=== PATIENT | female | born 1950 | race Asian ===

== ENCOUNTER 2018-02-10 13:01 | Emergency (ER) | payer MEDICARE, MEDICAID ==
--- OUTSIDE RECORDS SUMMARY | 2018-02-10 13:08 | XMS REPORT ---
:1950 External Reference #:[id number] Author Organization [employer] Address [address] [place] [address] [place] [address] Phone [phone] Care Team Providers Name Role Phone Kosta Massey MD Primary Care Physician Unavailable Payers Type Date Identification Numbers Payment Provider Subscriber Medicaid Policy Number: [id number] Medicaid Jaycob Lovell Group Name: 1 1 [address] PayID: [id number] [place] [address] Medigap Part B Policy Number: [id number] Medicare Jaycob Lovell PayID: [id number] [address] [place] [address] Problems Date Description Provider Status Onset: 01/04/2018 Anxiety disorder Kosta Massey M.D.,FACP Active Onset: 01/04/2018 Chronic gastritis Kosta Massey M.D.,FACP Active Onset: 01/04/2018 Solitary nodule of lung Kosta Massey M.D.,FACP Active Note: RT Onset: 01/04/2018 Bloody nipple discharge Kosta Massey M.D.,FACP Active Note: RT Onset: 01/11/2018 Type 2 diabetes mellitus Kosta Massey M.D.,FACP Active Note: diet controlled Onset: 02/17/2013 Impaired fasting glycaemia Maria Esther White M.D. Inactive Inactive: 01/11/2018 Family History Date Family Member(s) Problem(s) Comments Father due to Lung Cancer () Mother due to Unknown Causes () Children 1 Siblings 2 First Sister Lung Cancer Social History Type Date Description Comments Marital Status Lives With Family Occupation Retired ETOH Use 01/04/2018 Denies alcohol use Smoking Patient has never smoked Recreational Drug Use Denies Drug Use Daily Caffeine Does Not Consume Caffeine General Hx Text 1 daughter Allergies, Adverse Reactions, Alerts Date Description Reaction Status Severity Comments 11/15/2012 NKDA active Medications Medication Date Status Form Strength Qnty SIG Indications Ordering Provider Co Q-10 02/17/ Active Capsules 1 tab Maria Esther 2013 daily Keyana White Multi Complete / Active Capsules daily Unknown 0000 Folic Acid / Active Tablets 1 by Unknown 0000 mouth every day Lecithin / Active Capsules 1 tab Unknown 0000 daily Vitamin B / Active Tablets 1 by Unknown Complex 0000 mouth every day Melatonin / Active Tablets 5mg 2 tabs by Unknown Maximum 0000 mouth Strength daily at bedtime Preservision / Active Capsules 1 by Unknown Areds 0000 mouth once a day Vitamin D / Active Capsules 1 by Unknown (Cholecalcifero 0000 mouth l) every day Metformin HCL 01/28/ Hx Tablets ER 500mg 30tabs ( Never R73.01 Marija ER 2015 - 24HR Took ) 1 Tien 01/04/ by mouth M.D. 2017 every day Triamcinolone 01/07/ Hx Cream 0.1% 45unit apply 691.8 Marija Acetonide 2015 s thin film Tien, twice M.D. daily [place] 3 / Hx Capsules 100cap 1 po qd. Unknown 0000 s Calcium 500+D / Hx Tablets 500-400mg- 60tabs 1 po qd Unknown 0000 Unit Malawian Hx to help Unknown Supplement 0000 sleep Buspirone HCL / Hx Tablets 5mg 1 by Unknown 0000 mouth once a day weaning off this Immunizations CPT Code Status Date Vaccine Lot # [id number] Given 01/28/2015 Influenza Virus Vaccine, Quadrivalent, Split, [id number] Preservative Free [id number] Given 01/28/2015 Pneumococcal Conjugate Vaccine 13 Valent For [id number] Intramuscular Use 03754 Given 02/17/2013 Zoster (Zostavax) [id number] Given 02/17/2013 Flu Vaccine Split Virus Preservative Free For [id number] Indiv 3Yr Older Vital Signs Date Vital Result Comment 01/23/2018 Height 61.5 inches 5'1.50" Weight 109.00 lb Heart Rate 66 /min BP Systolic Sitting 102 mmHg BP Diastolic Sitting 64 mmHg Respiratory Rate 16 /min Body Temperature 98.3 F BMI (Body Mass Index) 20.3 kg/m2 01/04/2018 Height 61.5 inches 5'1.50" Heart Rate 68 /min BP Systolic 100 mmHg BP Diastolic 60 mmHg Body Temperature 98.0 F O2 % BldC Oximetry 98 % 01/28/2015 Height 61.5 inches 5'1.50" Weight 110.50 lb Heart Rate 78 /min BP Systolic Sitting 102 mmHg BP Diastolic Sitting 64 mmHg Respiratory Rate 14 /min Body Temperature 96.5 F O2 % BldC Oximetry 99 % BMI (Body Mass Index) 20.5 kg/m2 01/07/2015 Height 62 inches 5'2" Weight 109.00 lb Heart Rate 68 /min BP Systolic Sitting 110 mmHg BP Diastolic Sitting 64 mmHg Body Temperature 98.0 F O2 % BldC Oximetry 98 % BMI (Body Mass Index) 19.9 kg/m2 02/17/2013 Weight 110.25 lb Heart Rate 64 /min BP Systolic Sitting 90 mmHg BP Diastolic Sitting 60 mmHg 11/15/2012 Height 62.5 inches 5'2.50" Weight 109.00 lb Heart Rate 64 /min BP Systolic Sitting 112 mmHg BP Diastolic Sitting 62 mmHg BMI (Body Mass Index) 19.6 kg/m2 Results Test Date Test Result H/L Range Note Laboratory test finding 01/08/2018 TSH (Thyroid Stim 0.90 mcIU/mL 0.34- 5.60 1 Horm) Vitamin B12 927 pg/mL High 180-914 2 Comp Metabolic Panel 01/08/2018 Sodium 141 mmol/L 135-145 Potassium 4.1 mmol/L 3.5-5.0 Chloride 107 mmol/L 101-111 Co2 Carbon Dioxide 29 mmol/L 22-32 Anion Gap 5 mmol/L 2-11 Glucose 107 mg/dL High 70-100 Blood Urea Nitrogen 20 mg/dL 6-24 Creatinine 0.62 mg/dL 0.51-0.95 BUN/Creatinine Ratio 32.3 High 8-20 Calcium 9.2 mg/dL 8.6-10.3 Total Protein 6.7 g/dL 6.4-8.9 Albumin 4.2 g/dL 3.2-5.2 Globulin 2.5 g/dL 2-4 Albumin/Globulin Ratio 1.7 1-3 Total Bilirubin 0.50 mg/dL 0.2-1.0 Alkaline Phosphatase 78 U/L 34-104 Alt 19 U/L 7-52 Ast 21 U/L 13-39 Egfr Non- 95.4 >60 Egfr 115.5 >60 3 Laboratory test finding 01/08/2018 Hemoglobin A1c (Glyco HGB) 6.8 % High 4.0-5.6 4 Hepatitis C Antibody Nonreactive Nonreactive 5 Hepatitis B Alonso AB Titer 01/08/2018 Hepatitis B Surface AB Not Immune Immune Hep B Surf AB Level < 3.10 mIU/mL >12 Laboratory test finding 01/08/2018 Hepatitis B Surface Ag Nonreactive Nonreactive 6 CBC Auto Diff 01/08/2018 White Blood Count 3.6 10^3/uL 3.5-10.8 Red Blood Count 5.13 10^6/uL 4.00-5.40 Hemoglobin 15.3 g/dL 12.0-16.0 Hematocrit 46 % 35-47 Mean Corpuscular Volume 89 fL 80-97 Mean Corpuscular Hemoglobin 30 pg 27-31 Mean Corpuscular HGB Conc 33 g/dL 31-36 Red Cell Distribution Width 14 % 10.5-15 Platelet Count 181 10^3/uL 150-450 Mean Platelet Volume 8.5 um3 7.4-10.4 Abs Neutrophils 2.0 10^3/uL 1.5-7.7 Abs Lymphocytes 1.2 10^3/uL 1.0-4.8 Abs Monocytes 0.4 10^3/uL 0-0.8 Abs Eosinophils 0 10^3/uL 0-0.6 Abs Basophils 0 10^3/uL 0-0.2 Abs Nucleated RBC 0 10^3/uL Granulocyte % 54.3 % 38-83 Lymphocyte % 33.5 % 25-47 Monocyte % 10.8 % High 0-7 Eosinophil % 0.1 % 0-6 Basophil % 1.3 % 0-2 Nucleated Red Blood Cells % 0.1 Laboratory test 01/08/2018 Erythropoietin 7.7 mIU/mL 2.6 - 18.5 7 finding Order 01/04/2018 EKG Results given to CBC Auto Diff 01/15/2015 White Blood Count 4.2 10^3/uL Low 4.8-10.8 Red Blood Count 5.40 10^6/uL 4.0-5.4 Hemoglobin 15.5 g/dL 12.0-16.0 Hematocrit 49 % High 35-47 Mean Corpuscular Volume 90 fL 80-97 Mean Corpuscular Hemoglobin 29 pg 27-31 Mean Corpuscular HGB Conc 32 g/dL 31-36 Red Cell Distribution Width 14 % 10.5-15 Platelet Count 173 10^3/uL 150-450 Mean Platelet Volume 9 um3 7.4-10.4 Abs Neutrophils 2.2 10^3/uL 1.5-7.7 Abs Lymphocytes 1.6 10^3/uL 1.0-4.8 Abs Monocytes 0.4 10^3/uL 0-0.8 Abs Eosinophils 0 10^3/uL 0-0.6 Abs Basophils 0 10^3/uL 0-0.2 Abs Nucleated RBC 0 10^3/uL Granulocyte % 51.9 % 38-83 Lymphocyte % 37.7 % 25-47 Monocyte % 9.1 % High 1-9 Eosinophil % 0.7 % 0-6 Basophil % 0.6 % 0-2 Nucleated Red Blood Cells % 0 Comp Metabolic Panel 01/15/2015 Sodium 140 mmol/L 133-145 Potassium 3.9 mmol/L 3.5-5.0 Chloride 106 mmol/L 101-111 Co2 Carbon Dioxide 30 mmol/L 22-32 Anion Gap 4 mmol/L 2-11 Glucose 95 mg/dL 70-100 Blood Urea Nitrogen 19 mg/dL 6-24 Creatinine 0.62 mg/dL 0.51-0.95 BUN/Creatinine Ratio 30.6 High 8-20 Calcium 9.1 mg/dL 8.6-10.3 Total Protein 6.5 g/dL 6.4-8.9 Albumin 4.2 g/dL 3.2-5.2 Globulin 2.3 g/dL 2-4 Albumin/Globulin Ratio 1.8 1-3 Total Bilirubin 0.50 mg/dL 0.2-1.0 Alkaline Phosphatase 77 U/L 34-104 Alt 16 U/L 7-52 Ast 20 U/L 13-39 Egfr Non- 96.3 >60 Egfr 123.9 >60 8 Laboratory test 01/07/2015 Gardnerella/Yeast: Vaginal SEE RESULT BELOW 9 finding Dna Laboratory test 01/07/2015 Cytology SEE RESULT BELOW 10 finding HPV Rna Ww/Reflex Genotype Negative Negative 11 Laboratory test finding 01/07/2015 Hemoglobin A1c 6.1 5-7 Surgical Pathology 02/27/2013 S RUN DATE: 03/03/ <SEE 12 NOTE> Laboratory test finding 02/17/2013 Hemoglobin A1c 6.4 5-7 Laboratory test finding 11/15/2012 Hemoglobin A1c 6.3 5-7 1 FASTING 10 HOUR 2 Normal Range 180 to 914 Indeterminate Range 145 to 180 Deficient Range <145 3 Because ethnic data is not always readily available, this report includes an eGFR for both -Americans and non- Americans. The National Kidney Disease Education Program (NKDEP) does not endorse the use of the MDRD equation for patients that are not between the ages of 18 and 70, are , have extremes of body size, muscle mass, or nutritional status, or are non- or non-. According to the National Kidney Foundation, irrespective of diagnosis, the stage of the disease is based on the level of kidney function: Stage Description GFR(mL/min/1.73 m(2)) 1 Kidney damage with normal or decreased GFR 90 2 Kidney damage with mild decrease in GFR 60-89 3 Moderate decrease in GFR 30-59 4 Severe decrease in GFR 15-29 5 Kidney failure <15 (or dialysis) 4 Therapeutic target for the treatment of diabetes mellitus patients is <7% HBA1C, and in selective patients <6.0%. Please refer to [place] Diabetes Association diabetic care guidelines for further information. 5 FASTING 10 HOUR 6 FASTING 10 HOUR 7 Test Performed by: [facility] [address] [place] [address] 8 Because ethnic data is not always readily available, this report includes an eGFR for both -Americans and non- Americans. The National Kidney Disease Education Program (NKDEP) does not endorse the use of the MDRD equation for patients that are not between the ages of 18 and 70, are , have extremes of body size, muscle mass, or nutritional status, or are non- or non-. According to the National Kidney Foundation, irrespective of diagnosis, the stage of the disease is based on the level of kidney function: Stage Description GFR(mL/min/1.73 m(2)) 1 Kidney damage with normal or decreased GFR 90 2 Kidney damage with mild decrease in GFR 60-89 3 Moderate decrease in GFR 30-59 4 Severe decrease in GFR 15-29 5 Kidney failure <15 (or dialysis) 9 SEE RESULT BELOW Name: JAYCOB LOVELL : [address]: Marija Chauhan MD Acct: [id number] Unit: [id number] AGE: 64 Location: [facility] Re01/07/15 SEX: F Status: REG REF SPEC: [id number] CHANELLE: 01/07/15-[address] [facility] [address]: Marija Chauhan MD REQ: [id number] RECD: 01/07/15 STATUS: COMP _ SOURCE: SAÚL MURCIAC: ORDERED: Carroll Dominguez DNA Procedure Result Verified Site Gardnerella/Yeast: Vaginal DNA Final 01/08/15- 1104 ML Organism 1 Negative Gardnerella Organism 2 Negative Jessica The presence of G. vaginalis, although suggestive, is not diagnostic for bacterial vaginosis. Results should be interpreted in conjuction with other clinical and laboratory data available. Women with vaginal discharge should be evaluated for risk factors of cervicitis and pelvic inflammatory disease, toxic shock syndrome (S.aureus), and if present, evaluated for organisms not included in this assay such as N. gonorrhoeae, C. trachomatis, Mobiluncus, Mycoplasma and/or Prevotella. Mixed infections may occur. The performance of this test on patient specimens collected during or immediately after antimicrobial therapy is unknown. The presence or absence of Jessica species, or G. vaginalis cannot be used as a test for therapeutic success or failure. * ML - MAIN LAB ([facility]) . END OF REPORT * ML=Testing performed at Main Lab DEPARTMENT OF PATHOLOGY, [address] [place] [address] Josesito Millard M.D. Director [facility] # [id number] 10 SEE RESULT BELOW Name: JAYCOB LOVELL : [address]: Marija Chauhan MD Acct: [id number] Unit: [id number] AGE: 64 Location: [facility] Re01/07/15 SEX: F Status: REG REF SPEC: [id number] CHANELLE: 01/07/15-[address]: Marija Chauhan MD REQ: [id number] RECD: 01/07/15 STATUS: SOUT _ ORDERED: IMAGE ANALYSIS, HPV/Thin Prep, HPV 16/18 GENE FINAL DIAGNOSIS Negative for Intraepithelial lesion or Malignancy A. Ectocervical/Endocervical Specimen Adequacy: Satisfactory of evaluation Transformation zone component cannot be definitely identified due to presence of atrophy or other hormonal changes Patient Information: HPV: High risk HPV RNA testing regardless of pap results. HPV 16/18 Genotype for HPV pos Actual Specimen Date: 01/07/15 Post Menopausal?: Y Other Pertinent History: never had a pap Date Time Test Result Flag (u) Normal Range 01/07/15 1029 HPV RNA RFLX GE Negative Negative The high-risk HPV types detected by the assay include: 16, 18, 31, 33, 35, 39, 45, 51, 52, 56, 58, 59, 66, and 68. Signed (signature on file) Ermelinda EdwardsVIJI (ASCP) 01/08/15 1544 This Pap test was evaluated with the assistance of the [employer] Test Imaging System. Due to cytologic findings at the information specialist microscope, comprehensive manual rescreening by a Combatant Swimmer may be required. The Pap Smear is a screening test designed to aid in the detection of premalignant and malignant conditions of the uterine cervix. It is not a diagnostic procedure and should not be used as the sole means of detecting cervical cancer. Both false- positive and false- negative reports do occur. Depending on your risk status, a Pap smear should be obtained and evaluated every 1-3 years. END OF REPORT * ML=Testing performed at Main Lab DEPARTMENT OF PATHOLOGY, [facility] [address] [place], [place] [address] Josesito Millard M.D. Director [facility] # [id number] 11 The high-risk HPV types detected by the assay include: 16, 18, 31, 33, 35, 39, 45, 51, 52, 56, 58, 59, 66, and 68. 12 RUN DATE: 03/03/13 [facility] LAB LIVE PAGE 1 RUN TIME: [address] [facility] [employer] [place], [place] [address] Specimen Inquiry Name: JAYCOB LOVELL : [address]: Maria Esther White MD Acct: [id number] Unit: [id number] AGE: 62 Location: [facility] Re02/27/13 SEX: F Status: REG REF SPEC: [id number] CHANELLE: 02/27/13- SUBM DR: Pio Grier MD REQ: [id number] RECD: 02/27/135807 STATUS: SUHA NELSON DR: Maria Esther White MD _ ORDERED: KERATIN STAIN, IRON STAIN, MELAN-A STAIN, LEVEL IV Immunohistochemical stains for Pankeratin and Melan-A were performed with appropriate controls. The keratin stain highlights benign apocrine ductal elements. The Melan-A stain is entirely negative. These findings support the previously rendered diagnosis. Addendum Signed (signature on file) Josesito Millard MD 1424 FINAL DIAGNOSIS Breast, right, 6-7 o'clock, biopsy: A. Benign breast tissue with fibrocystic changes and changes compatible with previously ruptured cyst; see comment. B. No evidence of invasive or in situ carcinoma. Pending stains. COMMENT: Histologic sections show breast parenchyma with an area of adenosis and apocrine metaplasia. Adjacent to this area a nodule is present composed of histiocytes, hemosiderin lesion macrophages, and multinucleate giant cells containing cholesterol clefts in their cytoplasm. No epithelial elements are present in this nodule. Deeper levels of sectioning show numerous extravasated erythrocytes and fibrin deposition in the nodule. An iron stain, with appropriately reacting controls, is positive for copious amounts of hemosiderin. No cyst lining is present. Morphologically, this area of organizing inflammation with hemorrhage and cholesterol granulomata is most compatible with a reactive process to a previously ruptured cyst. There is no evidence of invasive or in situ carcinoma in the sampled tissue. Clinical, pathologic, and radiographic correlation is recommended. Additional immunostains to CONTINUED ON NEXT PAGE * ML=Testing performed at Main Lab DEPARTMENT OF PATHOLOGY, [facility] [address] [place], [place] [address] Josesito Millard M.D. Director [facility] Permit #[id number] RUN DATE: 03/03/13 [facility] LAB LIVE PAGE 2 RUN TIME: [address] [facility] [employer] [place], [place] [address] Specimen Inquiry Patient: JAYCOB LOVELL [id number] (Continued) SPECIMEN COMMENTS (Continued) definitively exclude malignancy are pending and the results will be reported in an addendum. Dr. Millard reviewed this case in intradepartmental consultation and agrees with the diagnosis. CLINICAL HISTORY Right breast solid nodule at the 6-7 o'clock position measuring 0.6 x 0.4 x 0.5 cm. GROSS DESCRIPTION The specimen is received in formalin labeled Jaycob Lovell, Ultrasound Guided Right Breast Biopsy, and consists of multiple cores of fibrofatty tissue that in aggregate measure 1.2 x 0.5 x 0.2 cm. Submitted entirely, one cassette. Signed (signature on file) Stephanie Alcala MD 05/12 1635 END OF REPORT * ML=Testing performed at Main Lab DEPARTMENT OF PATHOLOGY, [address] [place] [address] Josesito Millard M.D. Director [facility] Permit #[id number] Procedures Date CPT Code Description Status 01/04/2018 63409 EKG Tracing & Interpretation Completed 01/15/2015 Mammogram Completed 02/21/2013 Mammogram Completed Encounters Type Date Location Provider CPT E/M Dx Office Visit 01/04/2018 3:20p [facility] Kosta Massey, [address] F41.9 - Kevin Cazares M.D.,FACP R53.1 R73.01 K29.70 R91.1 N64.52 R00.2 Office Visit 01/28/2015 9:00a [facility] Marija Chauhan M.D. 14052 Z00.00 - Ben R73.01 Z12.11 D25.2 Z12.31 Z23 Office Visit 01/07/2015 9:40a [facility] Marija Chauhan M.D. 48252 790.21 - Ben V76.10 369.20 616.10 780.79 V76.2 691.8 Office Visit 02/17/2013 9:00a [facility] - Maria Esther White M.D. 11131 790.21 Ben V76.10 V04.81 V04.89 Office Visit 11/15/2012 1:40p [facility] - Maria Esther White M.D. 31589 790.21 Ben 369.20 Plan of Care Future Appointment(s):02/01/2018 9:00 am - Robert Castillo MD at [facility] Ujirkahcvifoxoex60/11/2018 9:40 am - Kosta Massey M.D.,FACP at [facility] - [address]/23/2018 - Christine Cullen MDN64.52 Nipple dischargeFollow up:TBA after mammo
--- OUTSIDE RECORDS SUMMARY | 2018-02-10 13:08 | XMS REPORT ---
:1950 External Reference #:[id number] Author Organization [facility] Address [address] [place] [address] [address] [place] [address] Phone [phone] Care Team Providers Name Role Phone Kosta Massey MD Primary Care Physician Unavailable Payers Type Date Identification Numbers Payment Provider Subscriber Medicare Primary Policy Number: [id number] Medicare Jaycob Lovell PayID: [id number] [address] [place] [address] Medigap Part B Policy Number: [id number] Medicaid Jaycob Lovell Group Name: 1 [address] PayID: [id number] [place] [address] Problems Date Description Provider Status Onset: 01/04/2018 [...] Family History Date Family Member(s) Problem(s) Comments General stomach ulcer Other family history of emphysema Father due to Lung Cancer () Mother due to Unknown Causes () Children 1 Siblings 2 First Sister Lung Cancer Social History Type Date Description Comments Marital Status Lives With Family Occupation Retired ETOH Use 01/04/2018 Denies alcohol use Smoking Patient has never smoked Recreational Drug Use Denies Drug Use Daily Caffeine Does Not Consume Caffeine General Hx Text 1 daughter - (Chelsie [phone]) Allergies, Adverse Reactions, Alerts Date Description Reaction Status Severity Comments 11/15/2012 NKDA active Medications Medication Date Status Form Strength Qnty SIG Indications Ordering Provider Prevacid 02/01/ Active Capsules 15mg 30caps one each Robert Nair 2018 DR dorota Castillo, on empty MD Co Q-10 02/17/ Active Capsules 1 tab [...] s thin film Tien, twice M.D. daily Selah 3 / Hx Capsules 100cap 1 po qd. Unknown 0000 s Calcium 500+D / Hx Tablets 500-400mg- 60tabs 1 po qd Unknown 0000 Unit Greenlandic / Hx to help Unknown Supplement 0000 sleep Buspirone HCL / Hx Tablets 5mg 1 by Unknown 0000 mouth once a day weaning off this Immunizations CPT Code Status Date Vaccine Lot # [id number] Given 01/28/2015 Influenza Virus Vaccine, Quadrivalent, Split, [id number] Preservative Free 04004 Given 01/28/2015 Pneumococcal Conjugate Vaccine 13 Valent For [id number] Intramuscular Use 15275 Given 02/17/2013 Zoster (Zostavax) [id number] Given 02/17/2013 Flu Vaccine Split Virus Preservative Free For [id number] Indiv 3Yr Older Vital Signs Date Vital Result Comment 02/01/2018 Height 61.5 inches 5'1.50" Weight 110.38 lb Heart Rate 67 /min BP Systolic 89 mmHg BP Diastolic 56 mmHg Respiratory Rate 16 /min Body Temperature 97.0 F Pain Level 0 O2 % BldC Oximetry 96 % BMI (Body Mass Index) 20.5 kg/m2 01/23/2018 Height 61.5 inches 5'1.50" Weight 109.00 [...] in selective patients <6.0%. Please refer to [place] [employer] diabetic care guidelines for further information. 5 FASTING 10 HOUR 6 FASTING 10 HOUR 7 Test Performed by: [facility] [address] [place] [address] 8 Because ethnic data is not always [...] [address]: Marija Chauhan MD Acct: [id number] Unit: [id number] AGE: 64 Location: [facility] Re01/07/15 SEX: F Status: REG REF SPEC: [id number] CHANELLE: 01/07/15-[address]: Marija Chauhan MD REQ: [id number] RECD: 01/07/15 STATUS: COMP _ SOURCE: SAÚL SPDESC: ORDERED: Angelica,Yeast DNA Procedure Result Verified Site Gardnerella/Yeast: Vaginal [...] or failure. * ML - MAIN LAB ([facility]) . END OF REPORT * ML=Testing performed at Main Lab DEPARTMENT OF PATHOLOGY, [address] [place] [address] Josesiot Millard M.D. Director [facility] # [id number] 10 SEE RESULT BELOW Name: JAYCOB LOVELL : [address]: Marija Chauhan MD Acct: [id number] Unit: [id number] AGE: 64 Location: [facility] Re01/07/15 SEX: F Status: REG REF SPEC: [id number] CHANELLE: 01/07/15-1029 [facility] DR: Marija Chauhan MD REQ: [id number] RECD: 01/07/15 STATUS: SOUT _ ORDERED: IMAGE [...] 64, and 68. Signed (signature on file) VIJI Garcia (ASCP) 01/08/15 1544 This Pap test was evaluated with the assistance of the [employer] Test Imaging System. Due to cytologic findings at the marine animal trainer microscope, comprehensive manual rescreening by a Ditching Machine Operator may be required. The Pap Smear is [...] performed at Main Lab DEPARTMENT OF PATHOLOGY, [address] [place] [address] Josesito Millard M.D. Director [facility] # [id number] 11 The high-risk HPV types detected by the assay include: 16, 18, 31, 33, 35, 39, 45, 51, 52, 56, 58, 59, 66, and 68. 12 RUN DATE: 03/03/13 [facility] LIVE PAGE 1 RUN TIME: [address] [place] [address] Specimen Inquiry Name: JAYCOB LOVELL : [address]: Maria Esther White MD Acct: [id number] Unit: [id number] AGE: 62 Location: [facility] Re02/27/13 SEX: F Status: REG REF SPEC: [id number] CHANELLE: 02/27/13- SUBM DR: Pio Grier MD REQ: [id number] RECD: 02/27/13-4447 STATUS: SUHA NELSON DR: Maria Esther White [...] performed at Main Lab DEPARTMENT OF PATHOLOGY, [address] [place] [address] Josesito Millard M.D. Director [facility] Permit #[id number] RUN DATE: 03/03/13 [facility] LIVE PAGE 2 RUN TIME: [address] [place] [address] Specimen Inquiry Patient: LOVELLEVELIOCHRISTIANO [id number] (Continued) SPECIMEN COMMENTS (Continued) definitively exclude malignancy [...] performed at Main Lab DEPARTMENT OF PATHOLOGY, [address] [place] [address] Josesito Millard M.D. Director [facility] Permit #[id number] Procedures Date CPT Code Description Status 01/24/2018 Mammogram Completed 01/04/2018 40717 EKG Tracing & Interpretation Completed 01/15/2015 Mammogram Completed 02/21/2013 Mammogram Completed Encounters Type Date Location Provider CPT E/M Dx Office Visit 01/04/2018 3:20p [facility] Internal Medicine Kosta Massey, [address] F41.9 - [place] Sage Ridley,FACP R53.1 R73.01 K29.70 R91.1 N64.52 R00.2 Office Visit 01/28/2015 9:00a [facility] Internal Medicine Marija Chauhan M.D. 484[address] Z00.00 - [place] R73.01 Z12.11 D25.2 Z12.31 Z23 Office Visit 01/07/2015 9:40a [facility] Internal Medicine Marija Chauhan M.D. 60516 790.21 - [place] V76.10 369.20 616.10 780.79 V76.2 691.8 Office Visit 02/17/2013 9:00a [facility] Internal Medicine - Maria Esther White M.D. 98221 790.21 [place] V76.10 V04.81 V04.89 Office Visit 11/15/2012 1:40p [facility] Internal Medicine - Maria Esther White M.D. 17629 790.21 [place] 369.20 Plan of Care Future Appointment(s):04/04/2018 9:15 am - Robert Castillo MD at [facility] Apalracwybjbpatt82/22/2018 9:30 am - MARISOL Corado at [facility]02/08/2018 8:00 am - Christine Cullen MD at [facility]02/07/2018 9:40 am - Kosta Massey M.D.,FACP at [facility] Internal Medicine - [address]
[2018-02-10 13:17] VITALS: BP 108/59
--- NOTE | 2018-02-10 13:51 | UC ---
Skin Complaint HPI - HPI Summary HPI Summary: Conducted in Mandarin Telugu. Accompanied by daughter. 67yo c/o rash and pain on right flank for one week. On 02/08/18 went [place] [facility] [place] but it was cancelled due to possible Shingles. Here with daughter who interprets and states she started Valacyclovir on 02/08/18 and is concerned that symptoms are worse. Experiencing very severe shooting pain on site of eruption that is radiating to limbs, abdomen and even right scalp. Has not been able to sleep. - History of Current Complaint Chief Complaint: UCSkin Time Seen by Provider: 02/10/18 13:13 Stated Complaint: SHINGLES FOLLOWUP Hx Obtained From: Patient, Family/Waste Water Operator ?: No Onset/Duration: Sudden Onset, Lasting Days Skin Exposure Onset/Duration: Days Ago Timing: Constant Onset Severity: Severe Current Severity: Severe Pain Intensity: 9 Location: Discrete Character: Pain, Redness Aggravating Factor(s): Nothing Alleviating Factor(s): Nothing Associated Signs & Symptoms: Positive: Rash, Tenderness - Allergy/Home Medications Allergies/Adverse Reactions: Allergies Allergy/AdvReac Type Severity Reaction Status Date / Time No Known Allergies Allergy Verified 02/10/18 13:17 Home Medications: Home Medications ValACYclovir (*) [Valtrex 1 GM(*)] 1 tab PO TID 02/10/18 [History Confirmed ] Review of Systems Constitutional: Fatigue Skin: Rash Musculoskeletal: Myalgia All Other Systems Reviewed And Are Negative: Yes PMH/Surg Hx/FS Hx/Imm Hx GI/ History: Gastroesophageal Reflux - Surgical History Surgical History: Yes Surgery Procedure, Year, and Place: benign breast biopsy right, bilat cataract - Family History Known Family History: Positive: Other - lung adenoCA in sister - Social History Alcohol Use: None Substance Use Type: None Smoking Status (MU): Never Smoked Tobacco Have You Smoked in the Last Year: No Physical Exam - Summary Physical Exam Summary: pkxclu-xdzvwuw-[id number] eruption following dermatomal distribution on right mid scapular and breast area. Triage Information Reviewed: Yes Appearance: Well-Nourished, Pain Distress Vital Signs: Initial Vital Signs Temp 99.0 F 02/10/18 13:11 Pulse 84 02/10/18 13:11 Resp 18 02/10/18 13:11 BP 108/59 02/10/18 13:11 Pulse Ox 98 02/10/18 13:11 Vital Signs Reviewed: Yes Eyes: Positive: Conjunctiva Clear ENT: Positive: Hearing grossly normal, Pharynx normal Neck: Positive: Supple, Nontender Respiratory: Positive: Chest non-tender, Lungs clear, Normal breath sounds, No respiratory distress Cardiovascular: Positive: RRR, No Murmur, Pulses Normal, Brisk Capillary Refill Abdomen Description: Positive: Nontender, No Organomegaly, Soft Bowel Sounds: Positive: Present Musculoskeletal: Positive: Strength Intact, ROM Intact, No Edema Skin: Positive: rashes Course/Dx - Course Course Of Treatment: patient with onset of herpes zoster a week ago, started treatment 2 days ago, experiencing neuralgic pain, to start treatment for it. Prescribed pamelor bedtime, norco prn and lidocaine patch as needed. Patient instructed to continue valtrex and follow up with PCP in 5-7 days. - Diagnoses Provider Diagnoses: postherpetic neuralgia Discharge - Sign-Out/Discharge Documenting (check all that apply): Patient Departure All imaging exams completed and their final reports reviewed: No Studies - Discharge Plan Condition: Stable Disposition: HOME Patient Education Materials: Shingles (ED) Referrals: Kosta Massey MD [Primary Care Provider] - - Billing Disposition and Condition Condition: STABLE Disposition: Home
== END 2018-02-10 14:00 | disposition home or self-care (01) ==
LOC: UCEAST 13:01
DX: B02.29 Other postherpetic nervous system involvement (principal)
CPT/HCPCS: 99212; G0463

== ENCOUNTER → 2018-03-29 10:19 | Day surgery (SDC) | payer MEDICARE, MEDICAID ==
--- NOTE | 2018-02-04 20:27 | HP ---
CC: Dr. Kosta Massey; Dr. Robert Castillo * ADMISSION HISTORY AND PHYSICAL: DATE OF ADMISSION: 02/08/18 ATTENDING SURGEON: Dr. Christine Cullen.* (DICTATED BY MARISOL MARS) CHIEF COMPLAINT: Bloody nipple discharge, right breast. HISTORY OF PRESENT ILLNESS: This is a generally healthy 67-year-old female who over the past 10 to 11 months has noticed spontaneous drainage from the right nipple. She states that it occurs every 1 to 2 days and is more pronounced when she is more active. She describes the drainage as sometimes reddish and more often dark brownish. Until yesterday, she had not been experiencing any pain in the breast; however, yesterday, she reports feeling occasional shooting pains in the right breast, generally emanating from the upper outer quadrant and into the breast. She notes no shortness of breath, though pain is somewhat exacerbated by deep inspiration. She did not have any trauma in recent days. She had a prior biopsy of the right breast in 2014 here at [facility] for benign disease. A mammogram was obtained on 01/24/18, which was essentially a normal study showing both the biopsy clip from prior biopsy of the right breast at the 6 o'clock position and stable asymmetry in the inferior portion of the right breast attributed to glandular tissue. The patient has had prior mammograms here for comparison in both 2012 and 2014 and the aforementioned changes are considered stable. The patient was seen in the office and examined by Dr. Cullen on 01/23/18 at which time breast exam was notable for some dense tissue in the upper outer quadrant of the right breast and some expressible drainage from the right nipple, which was heme positive. Dr. Cullen has discussed with the patient the indications for surgery, the risks , benefits, and alternatives. She would like to proceed as scheduled with terminal duct excision. PAST MEDICAL HISTORY: Occasional palpitations (PACs?), anxiety, gastritis. She also has a history of mildly elevated A1c, though per the patient and her daughter, she has never been treated for it nor has any dietary changes specifically for control. PAST SURGICAL HISTORY: Include excision of what appears to be likely a ganglion cyst from the dorsum of the right wrist and bilateral cataract extractions. CURRENT MEDICATIONS: Prevacid 15 mg once daily (just started today). She also takes the following supplements: 1. CoQ10. 2. Vitamin D. 3. PreserVision AREDS. 4. Melatonin (nightly). 5. Vitamin B complex. 6. Lecithin. 7. Folic acid. 8. Multivitamin. DRUG ALLERGIES: None known. FAMILY HISTORY: Negative for anesthesia problems, bleeding, or clotting disorders. 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 The patient does spend time back and forth living with her daughter and living in [place] with her . Her was a smoker until about a year ago and therefore the patient has some history of secondhand smoke, but herself has never used tobacco. She denies use of alcohol or other recreational drugs. REVIEW OF SYSTEMS: General: No recent constitutional symptoms or acute illnesses other than as noted in the HPI. HEENT: No problems reported. Cardiovascular: No chest pain per se. Occasional palpitations or rapid heart rate, though no change in recent years. No history of murmur or hypertension. Respiratory: No chronic cough or shortness of breath. No history of asthma. She apparently had a CT scan done in [place], which Dr. Massey has the report. She also underwent CT scan of the chest recently showing small subcentimeter bilateral pulmonary nodules without comparison with prior scan. The patient does have occasional cough, generally nonproductive. GI: She recently underwent evaluation with Dr. Castillo for some dyspepsia-type symptoms. She had had an otherwise normal-appearing EGD in [place] in April of this year. Dr. Castillo elected to place her on Prevacid, which she has just started. No significant lower GI symptoms. She has never had a colonoscopy. : No problems reported. 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 She has a history of uterine fibroids. Endocrine : Mild type 2 diabetes (versus impaired fasting glucose). No history of thyroid dysfunction. Neuro/Psych: She does have a history of some anxiety, which she feels is better controlled at the present time and occasional insomnia. PHYSICAL EXAMINATION GENERAL: Well-nourished, well-developed female, in no acute distress. VITAL SIGNS: Height 5 feet 2 inches, weight 109 pounds, temperature 98, blood pressure 104/62, pulse 84, respirations 18. HEENT: Pupils equal, round, and reactive. EOMs intact. No conjunctival pallor. Oropharynx: Teeth in good repair. No intraoral lesions. Mucous membranes moist. NECK: No lymphadenopathy, thyromegaly, or masses. LUNGS: Clear to auscultation. HEART: Regular rate and rhythm. No murmur noted. BREASTS: Per Dr. Cullen's exam, no discrete masses though some increased density in the upper outer quadrant in the right breast. I re-examined the right breast today. There is no active or expressible nipple discharge. There is no erythema or skin changes. I do not feel any discrete masses within the breast or any right axillary adenopathy nor was there any significant tenderness to palpation of the breast. The patient is reassured. ABDOMEN: Soft, nontender to palpation. No palpable masses or organomegaly. GENITALIA: Not done. RECTAL: Not done. BACK: No spinous process or CVA tenderness. EXTREMITIES: No edema. NEUROLOGICAL: Grossly intact. SKIN: Warm and dry. No suspicious rashes or lesions noted. IMPRESSION: Bloody nipple discharge, right breast. PLAN: Terminal duct excision, right breast. MARISOL MARS [id number]/CPS #: [id number] [facility]
--- NOTE | 2018-03-12 06:57 | HP ---
AMENDED REPORT NOW INCLUDES DESIGNATED COSIGNER CC: Dr. Kosta Massey; Dr. Robert Castillo * ADMISSION HISTORY AND PHYSICAL: DATE OF ADMISSION: 03/29/18 through same-day surgery. ATTENDING SURGEON: Dr. Christine Cullen.* (DICTATED BY MARISOL MARS) CHIEF COMPLAINT: Bloody nipple discharge, right breast. HISTORY OF PRESENT ILLNESS: This is a generally healthy 67-year-old female who over the past 10 to 11 months has noticed spontaneous drainage from the right nipple. She states that it occurs every 1 to 2 days and is more pronounced when she is active. She describes the drainage as sometimes reddish and more often dark brownish. She had had a prior biopsy of the right breast in [address] [facility] for benign disease. A mammogram was obtained on 01/24/18 , which was essentially normal study, both the biopsy clip from prior biopsy of the right breast at the 6 o'clock position and stable asymmetry in the inferior portion of the right breast attributed to glandular tissue. The patient had that prior mammograms here for comparison in both 2012 and 2014 and the aforementioned changes are considered stable. The patient was seen initially in the office and examined by Dr. Cullen on 01/23, at which time breast exam was notable for some dense breast tissue in the upper outer quadrant of the right breast and some expressible drainage from the right nipple, which was heme-positive. The patient was scheduled for terminal duct excision and at the time of her preoperative exam had related feelings of shooting pains into the right breast beginning the day prior. There was no specific finding on physical exam at that time and she presented on the day of surgery with rash along the dermatome consistent with shingles. Surgery was therefore cancelled. The patient did complete 7 days of Valtrex. She continued to have significant pain related to shingles and was prescribed nortriptyline and more recently Lyrica, both of which she continues at the present time. Overall, she has improved significantly and does have a followup later this week with Dr. Massey. Also of note, the patient does not speak Maltese. Her daughter was present today for translation. The patient understands the indications for surgery, the risks, benefits, and alternatives and would like to proceed as scheduled with right breast terminal duct excision. PAST MEDICAL HISTORY: Occasional palpitations (PACs ?), anxiety, gastritis, and recently shingles. She also has had history of mildly elevated A1c, though per the patient and her daughter she has never been treated for diabetes nor does she have any dietary restrictions. PAST SURGICAL HISTORY: Include excision of what appears to be a ganglion cyst from the dorsum of the right wrist, bilateral cataract extractions and prior right breast biopsy. CURRENT MEDICATIONS: 1. Prevacid 15 mg once daily. 2. CoQ10. 3. Vitamin D. 4. PreserVision AREDS. 5. Melatonin (nightly). 6. Vitamin B complex. 7. Lecithin. 8. Folic acid. 9. Multivitamin. 10. Nortriptyline 25 mg b.i.d. 11. Lyrica 75 mg b.i.d. 12. Hydrocodone/APAP 5/325 p.r.n. for pain (has not required much in the past few days). DRUG ALLERGIES: None known. FAMILY HISTORY: Negative for anesthesia problems, bleeding, or clotting disorder. SOCIAL HISTORY: The patient lives with her daughter. The patient does spend time back and forth living with her daughter and living in [place] with her . Her was a smoker until about a year ago and therefore, the patient does have some history of secondhand smoke, but she herself has never used tobacco. She denies use of alcohol or other recreational drugs. REVIEW OF SYSTEMS: General: Recent episode of shingles prompting rescheduling of her breast surgery. She has been improving significantly in the last week or so in terms of pain and almost complete resolution of her shingles rash. HEENT: No problems reported. Cardiovascular: No chest pain per se. Occasional palpitations or rapid heart rate, though no change in recent years. No history of heart murmur or hypertension. Respiratory: No chronic cough or shortness of breath. No history of asthma. She apparently had a CT scan done in [place], which Dr. Massey has the report. She also underwent CT scan of the chest recently showing small subcentimeter bilateral pulmonary nodules without comparison with prior scan. The patient does have occasional cough, though generally nonproductive. GI: She recently underwent evaluation with Dr. Castillo for some dyspepsia-type symptoms. She has had an otherwise normal- appearing EGD in [place] in April of this year. Dr. Castillo elected to place her on Prevacid, which she has recently started. She denies any significant lower GI symptoms. She has never had a colonoscopy. : No problems reported. INSURANCE PROCESSOR: She had Pap smear and pelvic exam in October of this year, which was reportedly normal. She has a history of uterine fibroids. See also above per HPI. Endocrine: Impaired fasting glucose with mildly elevated A1c, but no current treatment. No history of thyroid dysfunction. Neuro/Psych: She does have a history of some anxiety, which she feels is better controlled at the present time. She has occasional insomnia. PHYSICAL EXAMINATION GENERAL: Well-nourished, well-developed female in no acute distress. VITAL SIGNS: Height 61.5 inches, weight 115 pounds, blood pressure 102/60, pulse 84, respirations 16. HEENT: Pupils are equal, round, and reactive. EOMs intact. No conjunctival pallor. Oropharynx: Teeth in good repair. No intraoral lesions. Mucous membranes are moist. NECK: No lymphadenopathy, thyromegaly, or masses. LUNGS: Clear to auscultation. HEART: Regular rate and rhythm. No murmur noted. BREASTS: (Per Dr. Cullen's exam as noted above). Per Dr. Cullen, no discrete masses in either breasts and no palpable lymphadenopathy. ABDOMEN: Soft, nontender to palpation. No palpable masses or organomegaly. GENITALIA: Not done. RECTAL: Not done. BACK: No spinous process or CVA tenderness. EXTREMITIES: No edema. NEUROLOGICAL: Grossly intact. SKIN: Warm and dry. There is a new resolved rash in the dermatome along the right posterior chest extending to and including the right superior breast and chest wall. There are few lesions with dried eschar intact, but most of these have cleared with some mild hyperpigmentation. Much of this area particularly anteriorly is hypersensitive to light touch. IMPRESSION: Bloody nipple discharge, right breast. PLAN: Terminal duct excision, right breast. MARISOL MARS [id number]/[facility] #: [id number] MTDD
[~2018-03-29 10:19] MED LIST: Buffered Lidocaine 0.9% SYRIN* 5 ML/SYR SYRINGE INTRADERM ONE; Bupivacaine 0.5% PF 10 ML VIAL INJ ONE; Dexamethasone IV* 4 MG/ML 1 ML (4 MG) IV SLOW PU ONE; Dexamethasone IV* 4 MG/ML 1 ML (4 MG) ONE; DiMENhydriNATE IV* 50 MG/ML VIAL IV PUSH PRN; Famotidine IV* 10 MG/ML 2 ML (20 mg) IV ONE; Famotidine IV* 10 MG/ML 2 ML (20 mg) ONE; HYDROcodone/ACETAMIN 5-325 MG* 1 TAB PO PRN; Lidocaine 1% INJ* 10 MG/ML 30 ML SDV ONE; Lidocaine 2% PF * 5 ML VIAL ONE; Midazolam* 1 MG/ML 5 ML VIAL (5 MG) ONE; Naloxone* 0.4 MG/ML 1 ML VIAL IV PRN; Ondansetron INJ* 2 MG/ML VIAL ONE; Propofol* 10 MG/ML 20 ML BTL ONE; ceFAZolin 2 GM PREMIX in ORs 2 GM/50 ML BAG IVPB ONE; fentaNYL* 50 MCG/ML 2 ML VIAL (100 MCG VIAL) IV PRN; fentaNYL* 50 MCG/ML 2 ML VIAL (100 MCG VIAL) ONE; oxyCODONE/Acetamin 5/325 MG* TAB PO PRN
--- NOTE | 2018-03-29 14:27 | BRIEFOPN ---
Brief Operative Note - Surgery Procedures: 03/29/18 Op Note Pre-op dx: right breast bloody nipple discharge Post-op dx: same Procedure: right breast terminal duct excision Surgeon: Subhash Asst: none Anesth: local MAC EBL: 5 cc complications: none SCDs on during surgery Abx: given pre-op Pt. tolerated procedure well and was transferred to in a stable condition. CLFoster
[2018-03-29 15:04] VITALS: BP 129/62
--- NOTE | 2018-03-30 10:38 | OP ---
CC: Dr. Kosta Massey * DATE OF OPERATION: 03/29/18 - [facility] DATE OF : 46 SURGEON: Christine Cullen MD FRENCH TUTOR: There was no assistant grocery for this case. PRE-OPERATIVE DIAGNOSIS: Right breast bloody nipple discharge. POST-OPERATIVE DIAGNOSIS: Right breast bloody nipple discharge. OPERATIVE PROCEDURE: Right breast terminal duct excision. INDICATIONS: Ms. Perez is a 67-year-old woman who presented to the office with bloody nipple discharge prompting the plan for surgical intervention. She was originally scheduled but had to cancel due to an episode of shingles but she and her family reported that her shingles had resolved so she was prepared for proceeding with surgery. DESCRIPTION OF PROCEDURE: She was brought to the operating room, placed on the OR table in the supine position and given IV sedation. The right breast was prepped and draped in the usual sterile fashion. After infiltrating with local anesthetic in the circumareolar fashion, lacrimal probe was placed into the duct that produced the nipple discharge. A curvilinear incision in a circumareolar fashion was made and subcutaneous tissue was divided to elevate the flap of the nipple towards the ascending duct. Closer to the nipple individual ducts were isolated and divided between ligature and the ducts with the probe in it was identified. The duct did not appear to proceed anywhere and seem to be a blind end, so this duct was excised as well as the cone of tissue from under the nipple area. The specimens were sent together. The cone of tissue that was excised using electrocautery was marked in usual fashion before it was handed off. Once the specimen was out of breast, hemostasis was assured with electrocautery and once this was adequate, additional local was instilled into the wound and then closure was accomplished with 3-0 Vicryl in the subcutaneous layer and the skin was closed using 4-0 Prolene in the subcuticular fashion. Steri-Strips and a dry sterile dressing were applied. All sponge and instrument counts were correct. She tolerated the procedure well and was transferred to recovery in a stable condition. [id number]/[facility] #: [id number] [facility] CENTERFrederick
== END | disposition home or self-care (01) ==
LOC: OR 02-08 10:56
PROVIDERS: ATTEND Surgery
DX: N64.52 Nipple discharge (principal); R00.2 Palpitations; F41.9 Anxiety disorder, unspecified; K21.9 Gastro-esophageal reflux disease without esophagitis
CPT/HCPCS: 88307; J0690; J1100; J2250; J2405; J2704; J3010

== ENCOUNTER 2019-04-26 15:27 | Emergency (ER) | payer MEDICARE, MEDICAID ==
--- OUTSIDE RECORDS SUMMARY | 2019-04-26 15:32 | XMS REPORT | Continuity of Care Document ---
:1950 External Reference #:[id number] Author Name Robert Hagen M.D. Address 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 Onset: 02/26/2015 Anxiety disorder Onset: 01/04/2018 Type 2 diabetes mellitus Onset: 01/11/2018 Solitary nodule of lung Onset: 01/04/2018 Chronic gastritis Onset: 01/04/2018 Bloody nipple discharge Onset: 01/04/2018 Social History Type Date Description Comments Sex Unknown ETOH Use Denies alcohol use Tobacco Use Start: Unknown Patient has never smoked Smoking Status Reviewed: 03/06/19 Patient has never smoked Allergies, Adverse Reactions, Alerts Description No Known Drug Allergies Medications Active Medications SIG Qnty Indications Ordering Provider Date Co Q-10 1 tab daily Maria Esther White MD 02/17/2013 Tablets ER 24HR Lecithin 1 tab every Unknown Granules other day Melatonin Maximum 1.5 tabs by mouth Unknown Strength daily at bedtime 5mg Tablets Preservision Areds 1 by mouth once a Unknown day Capsules Immunizations CPT Code Status Date Vaccine Lot # 77782 Given 03/13/2018 Pneumococcal Vaccine 2Yrs Or Older 41432 Given 02/12/2018 Influenza Vaccine Split Virus Preservative Free Im Use 21676 Given 01/28/2015 Influenza Virus Vaccine, Quadrivalent, Split, Preservative Free 75142 Given 01/28/2015 Pneumococcal Conjugate Vaccine 13 Valent For Intramuscular Use 46067 Given 02/17/2013 Zoster Shingles Vaccine For Subcutaneous Injection 68902 Given 02/17/2013 Influenza Virus Vaccine Split Virus Use For Individual 3Yr Older Vital Signs Date Vital Result Comment 01/30/2019 11:46am Intraocular Pressure Right Eye 15 mmHg Intraocular Pressure Left Eye 15 mmHg 04/17/2018 11:45am Intraocular Pressure Right Eye 16 mmHg Intraocular Pressure Left Eye 16 mmHg Results Description No Information Available Procedures Date Code Description Status 03/06/2019 42561 Remove Secondary Cataract, Laser (Yag) Completed 02/27/2019 36047 Remove Secondary Cataract, Laser (Yag) Completed 01/30/2019 57658 Oct Retina Completed 01/30/2019 99972 Eye Exam Est Intermediate Completed Medical Devices Description No Information Available Encounters Description No Information Available Assessments Date Code Description Provider 03/06/2019 H26.491 Other secondary cataract, right eye Robert Hagen M.D. 02/27/2019 H26.492 Other secondary cataract, left eye Robert Hagen M.D. 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, bilateral Jakub Soares, OD 01/30/2019 H35.371 Puckering of macula, right eye Jakub Soares, OD 01/30/2019 H02.831 Dermatochalasis of right upper eyelid Jakub Soares, OD 01/30/2019 H02.834 Dermatochalasis of left upper eyelid Jakub Soares, OD 01/30/2019 H52.4 Presbyopia Jakub Soares, OD 01/30/2019 E11.9 Type 2 diabetes mellitus without Jakub Soares, OD complications Plan of Treatment Future Appointment(s):03/13/2019 9:15 am - Jakub Soares, OD at [facility]/2018 - Robert Hagen M.D.H26.491 Other secondary cataract, right eyeFollow up:1-2 wks post yag cap ou DR Blanco Functional Status Description No Information Available Mental Status Description No Information Available Referrals Description No Information Available
--- OUTSIDE RECORDS SUMMARY | 2019-04-26 15:32 | XMS REPORT | Continuity of Care Document ---
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 [phone] Medicine Problems Active Problems Provider Date Combined [...] Patient has never smoked Smoking Status Reviewed: 03/12/19 Patient has never smoked Allergies, Adverse Reactions, [...] CPT Code Status Date Vaccine Lot # [id number] Given 03/13/2018 Pneumococcal Vaccine 2Yrs Or Older 53335 Given 02/12/2018 Influenza Vaccine Split Virus Preservative Free [place] Use 43933 Given 01/28/2015 Influenza Virus Vaccine, Quadrivalent, Split, Preservative Free 49245 Given 01/28/2015 Pneumococcal Conjugate Vaccine 13 Valent For Intramuscular Use 54264 Given 02/17/2013 Zoster Shingles Vaccine For Subcutaneous Injection 90069 Given 02/17/2013 Influenza Virus Vaccine Split Virus Use For Individual 3Yr Older Vital Signs Date Vital Result Comment 01/30/2019 11:46am Intraocular Pressure Right Eye 15 mmHg Intraocular Pressure Left Eye 15 mmHg 04/17/2018 11:45am Intraocular Pressure Right Eye 16 mmHg Intraocular Pressure Left Eye 16 mmHg Results Description No Information Available Procedures Date Code Description Status 03/06/2019 19162 Remove Secondary Cataract, Laser (Yag) Completed 02/27/2019 29814 Remove Secondary Cataract, Laser (Yag) Completed 01/30/2019 98701 Oct Retina Completed 01/30/2019 77344 Eye Exam Est Intermediate Completed Medical Devices Description No Information Available Encounters Description No Information Available Assessments Date Code Description Provider 03/13/2019 Z96.1 Presence of intraocular lens Jakub Soares, OD 03/06/2019 H26.491 Other secondary cataract, right eye Robert Hagen M.D. 02/27/2019 H26.492 Other secondary cataract, left eye Robert Hagen M.D. 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, bilateral Jakub Rodger, OD 01/30/2019 H35.371 Puckering of macula, right eye Jakub Soares, OD 01/30/2019 H02.831 Dermatochalasis of right upper eyelid Jakub Soares, OD 01/30/2019 H02.834 Dermatochalasis of left upper eyelid Jakub Soares, OD 01/30/2019 H52.4 Presbyopia Jakub Soares, OD 01/30/2019 E11.9 Type 2 diabetes mellitus without Jakub Soares, OD complications Plan of Treatment 03/13/2019 - Jakub Soares, ODZ96.1 Presence of intraocular lensFollow up: yearly full, sooner PRN Functional Status Description No Information Available Mental Status Description No Information Available Referrals Description No Information Available
--- OUTSIDE RECORDS SUMMARY | 2019-04-26 15:32 | XMS REPORT | Continuity of Care Document ---
:1950 External Reference #:[id number] Author Name Robert Hagen M.D. Address [address] 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 [phone] Medicine Problems Active Problems Provider Date Combined [...] Patient has never smoked Smoking Status Reviewed: 02/27/19 Patient has never smoked Allergies, Adverse Reactions, [...] CPT Code Status Date Vaccine Lot # [id number] Given 03/13/2018 Pneumococcal Vaccine 2Yrs Or Older 70020 Given 02/12/2018 Influenza Vaccine Split Virus [place] Use 30[address] Given 01/28/2015 Influenza Virus Vaccine, Quadrivalent, Split, Preservative Free 46049 Given 01/28/2015 Pneumococcal Conjugate Vaccine 13 Valent For Intramuscular Use 87141 Given 02/17/2013 Zoster Shingles Vaccine For Subcutaneous Injection 03865 Given 02/17/2013 Influenza Virus Vaccine Split Virus Use For Individual 3Yr Older Vital Signs Date Vital Result Comment 01/30/2019 11:46am Intraocular Pressure Right Eye 15 mmHg Intraocular Pressure Left Eye 15 mmHg 04/17/2018 11:45am Intraocular Pressure Right Eye 16 mmHg Intraocular Pressure Left Eye 16 mmHg Results Description No Information Available Procedures Date Code Description Status 02/27/2019 68693 Remove Secondary Cataract, Laser (Yag) Completed 01/30/2019 13703 Oct Retina Completed 01/30/2019 62836 Eye Exam Est Intermediate Completed Medical Devices Description No Information Available Encounters Description No Information Available Assessments Date Code Description Provider 02/27/2019 H26.492 Other secondary cataract, left eye [...] am - Jakub Soares, OD at [facility]/2018 11:00 am - Robert Hagen M.D. at [facility]/27/2019 - Robret Hagen M.D.H26.492 Other secondary cataract, left eyeFollow up:1 wk yag cap od Functional Status Description No Information Available Mental Status Description No Information Available Referrals Description No Information Available
[2019-04-26 15:39] VITALS: BP 103/51
--- NOTE | 2019-04-26 15:57 | UC ---
Respiratory Complaint HPI - HPI Summary HPI Summary: patient presents with daughter (almond paste mixer) who states patient has been coughing for 5 weeks. no fever, occasional nasal congestion. has not taken medication for symps, but complains of "tickle in throat and cough. no hx allergies - History of Current Complaint Chief Complaint: UCRespiratory Stated Complaint: COUGH Time Seen by Provider: 04/26/19 15:44 Hx Obtained From: Patient, Family/Fitness Assistant Onset/Duration: Gradual Onset Timing: Constant Severity Initially: Mild Severity Currently: Mild Pain Intensity: 1 Character: Cough: Nonproductive Aggravating Factors: Nothing Alleviating Factors: Spontaneous Resolution Associated Signs And Symptoms: Positive: Nasal Congestion. Negative: Dyspnea, Fever, Chills, Hemoptysis, Hoarseness - Allergies/Home Medications Allergies/Adverse Reactions: Allergies Allergy/AdvReac Type Severity Reaction Status Date / Time No Known Allergies Allergy Verified 04/26/19 15:39 PMH/Surg Hx/FS Hx/Imm Hx Previously Healthy: Yes GI/ History: Gastroesophageal Reflux - Surgical History Surgical History: Yes Surgery Procedure, Year, and Place: benign breast biopsy right, bilat cataract - Family History Known Family History: Positive: Other - lung adenoCA in sister - Social History Occupation: Unemployed Lives: With Family Alcohol Use: Rare Substance Use Type: None Smoking Status (MU): Never Smoked Tobacco Have You Smoked in the Last Year: No Review of Systems All Other Systems Reviewed And Are Negative: Yes Constitutional: Positive: Negative Skin: Positive: Negative. Negative: Rash ENT: Positive: Sinus Congestion. Negative: Epistaxis, Sore Throat, Ear Ache Respiratory: Positive: Cough. Negative: Shortness Of Breath Cardiovascular: Positive: Negative. Negative: Chest Pain Gastrointestinal: Positive: Negative Musculoskeletal: Positive: Negative Neurological: Positive: Negative. Negative: Headache Psychological: Positive: Negative Is Patient Immunocompromised?: No Physical Exam Triage Information Reviewed: Yes Appearance: Well-Appearing, No Pain Distress, Well-Nourished Vital Signs: Initial Vital Signs Temp 98.9 F 04/26/19 15:30 Pulse 70 04/26/19 15:30 Resp 18 04/26/19 15:30 BP 103/51 04/26/19 15:30 Pulse Ox 97 04/26/19 15:30 Vital Signs Reviewed: Yes Eye Exam: Normal Eyes: Positive: Conjunctiva Clear ENT: Positive: Pharynx normal - except mild irritation, Nasal congestion, TMs normal. Negative: Sinus tenderness Neck exam: Normal Neck: Positive: No Lymphadenopathy Respiratory: Positive: Lungs clear, Other: - frequent dry cough on exam without evidence SOB Cardiovascular: Positive: RRR Musculoskeletal Exam: Normal Neurological Exam: Normal Psychological Exam: Normal Skin Exam: Normal Diagnostics - Radiology No standard instances Radiology Interpretation Completed By: Radiologist - no evidence active cardiopulmonary disease Respiratory Course/Dx - Differential Dx/Diagnosis Differential Diagnosis/HQI/PQRI: Bronchitis, Influenza, Lower Resp Infection, Sinusitis Provider Diagnosis: Bronchitis Discharge ED - Sign-Out/Discharge Documenting (check all that apply): Patient Departure All imaging exams completed and their final reports reviewed: Yes - Discharge Plan Condition: Stable Disposition: HOME Prescriptions: Azithromycin TAB* [Zithromax TAB (Z-ODESSA) 250 mg #6 tabs] 2 tab PO .TODAY, THEN 1 DAILY #1 odessa Benzonatate CAP* [Tessalon 100 MG CAP*] 100 mg PO TID #15 cap Patient Education Materials: Acute Bronchitis (ED) Referrals: Bonnie Cabezas MD [Primary Care Provider] - 3 Days (if no better) Additional Instructions: drink plenty of fluids and rest take antibiotic and cough gel as prescribed - Billing Disposition and Condition Condition: STABLE Disposition: Home
== END 2019-04-26 16:30 | disposition home or self-care (01) ==
LOC: UCEAST 15:27
DX: J40 Bronchitis, not specified as acute or chronic (principal); J34.89 Other specified disorders of nose and nasal sinuses
CPT/HCPCS: 71046; 99212; G0463